=== PATIENT | male | born 1965 | race Caucasian/White ===

== ENCOUNTER 2022-11-03 12:49 | Emergency (ER) | payer OTHER ==
[~2022-11-03] VITALS: Ht 180.3 cm; Wt 89.4 kg
--- NOTE | 2022-11-03 13:35 | NUR ---
RLE PAIN AND SWELLING, SENT BY PMD TO R/O DVT S/P KNEE SURGERY
[2022-11-03] MEDS ORDERED: HYDROCODONE/APAP 5/325MG TABLET PO ONE (14:00)
[2022-11-03] MEDS ORDERED: HYDROCODONE/APAP 5/325MG TABLET ONE (14:03)
[2022-11-03] MEDS ORDERED: HYDR-4209 PO (14:13)
--- NOTE | 2022-11-03 16:03 | NUR ---
US TECH AT BEDSIDE . + FOR DVT AT RIGHT POPLITEAL
[2022-11-03 16:57] LABS: BASOPHILS % (AUTO) 0.5 % (0.0-2.0); HEMATOCRIT 39 % (39-51); HEMOGLOBIN 13.1 g/dL (13.5-17.5); LYMPHOCYTES # (AUTO) 1.7 K/uL (0.8-4.8); LYMPHOCYTES % (AUTO) 31.1 % (20.0-44.0); MEAN CORPUSCULAR HGB CONC 34 g/dl (31.0-36.0); MEAN CORPUSCULAR VOLUME 87 fL (80-96); MONOCYTES # (AUTO) 0.6 K/uL (0.1-1.30); MONOCYTES % (AUTO) 10.5 % (2.0-12.0); NEUTROPHILS # (AUTO) 3.1 K/uL (1.8-8.9); NEUTROPHILS % (AUTO) 55.9 % (43.0-81.0); PLATELET COUNT (AUTO) 210 K/uL (150-450); RED BLOOD CELL COUNT(AUTO) 4.45 MIL/uL (4.5-6.0); WHITE BLOOD COUNT (AUTO) 5.5 K/uL (4.3-11.0)
[2022-11-03 17:03] LABS: CREATININE 1.1 mg/dL (0.6-1.3); POTASSIUM 4.1 mmol/L (3.5-5.1)
[2022-11-03 17:10] LABS: ALBUMIN 3.8 g/dL (3.4-5.0); BILIRUBIN,DIRECT 0.2 mg/dL (0.0-0.2); BILIRUBIN,TOTAL 0.5 mg/dL (0.2-1.0); TOTAL PROTEIN, SERUM 7.5 g/dL (6.4-8.2)
[2022-11-03] MEDS ORDERED: APIX5TAB4 PO (17:26)
[2022-11-03] MEDS ORDERED: APIXABAN 5 MG TABLET PO SCH (17:30)
[2022-11-03] MEDS ORDERED: APIXABAN 5 MG TABLET ONE (17:42)
--- NOTE | 2022-11-03 17:46 | NUR ---
patient given meds Eliquis 10mg
--- NOTE | 2022-11-03 17:54 | NUR ---
Patient discharged to home in stable condition. Written and verbal after care instructions given. Patient verbalizes understanding of instruction.
[2022-11-03 17:55] VITALS: BP 110/87
== END 2022-11-03 17:57 | disposition home or self-care (01) ==
LOC: ER 13:16
DX: M79.89 Other specified soft tissue disorders (principal); Z98.890 Other specified postprocedural states; Z79.899 Other long term (current) drug therapy
CPT/HCPCS: 36415; 80048-TC; 80076-TC; 85025-TC; 85730-TC; 93971-TC